=== PATIENT | male | born 1945 | race Hispanic/Latino ===

== ENCOUNTER 2018-01-15 07:41 | Day surgery (SDC) | payer OTHER ==
[2018-01-13 10:40] VITALS: BP 140/75
[2018-01-13 10:56] LABS: BASOPHILS % (AUTO) 0.7 % (0.0-5.0); EOSINOPHILS % (AUTO) 3.7 % (0.0-8.0); HEMATOCRIT 42.7 % (42-54); LYMPHOCYTES % (AUTO) 32.3 % (21.0-51.0); MEAN CORPUSCULAR HEMOGLOBIN 28.9 pg (27.0-33.0); MEAN CORPUSCULAR HGB CONC 33.6 g/dL (32.0-36.0); MEAN CORPUSCULAR VOLUME 86.1 fL (79-99); MONOCYTES % (AUTO) 5.8 % (3.0-13.0); NEUTROPHILS % (AUTO) 57.5 % (40.0-77.0); PLATELET COUNT (AUTO) 128 K/uL (130-400); RED BLOOD CELL COUNT(AUTO) 4.96 MIL/uL (4.50-6.20); RED CELL DISTRIBUTION WIDTH 15.5 % (11.0-15.5); WHITE BLOOD COUNT (AUTO) 4.8 K/uL (4.8-10.8)
[2018-01-13 10:59] LABS: APPEARANCE,URINE CLEAR (CLEAR); BILIRUBIN,URINE NEGATIVE (NEGATIVE); COLOR,URINE YELLOW (YELLOW); GLUCOSE, URINE (UA) >=1000 mg/dL (NEGATIVE); KETONES,URINE NEGATIVE (NEGATIVE); LEUKOCYTE ESTERASE ,URINE NEGATIVE (NEGATIVE); NITRATE,URINE NEGATIVE (NEGATIVE); OCCULT BLOOD,URINE NEGATIVE (NEGATIVE); PROTEIN,URINE NEGATIVE (NEGATIVE); UROBILINOGEN,URINE 0.2 mg/dL (0.2-1.0)
[2018-01-13 11:05] LABS: BACTERIA,URINE Rare /HPF (None Seen); RBC,URINE None Seen /HPF (0-1); SQUAMOUS EPITHELIAL CELL,UR Rare /HPF (0-2); WBC,URINE None Seen /HPF (0-1)
[2018-01-13 11:09] LABS: CREATININE 0.9 mg/dL (0.5-1.5); POTASSIUM 4.9 mmol/L (3.5-5.1)
[2018-01-15] VITALS (19 sets, daily range): BP systolic 96–146; BP diastolic 54–89
[~2018-01-15] VITALS: Ht 171.4 cm; Wt 78.4 kg
[~2018-01-15 07:41] MED LIST: ALPR0.5T8 PO; GLIP5TAB11 PO; LISI30TA4 PO; METF10004 PO; SIMV40TA5 PO
[2018-01-15] MEDS ORDERED: LACTATED RINGERS 1000ML 1,000 ML IV ONE (08:15)
[2018-01-15] MEDS ORDERED: ROPIVACAINE 0.5% 5MG/ML 30ML IJ ONE (09:06)
[2018-01-15] MEDS ORDERED: LIDOCAINE HCL 2% 20ML ONE (09:06)
[2018-01-15] MEDS ORDERED: ROCURONIUM BROMIDE 10MG/1ML 5ML VL ONE (09:24)
[2018-01-15] MEDS ORDERED: FENTANYL CITRATE PF 50 MCG/1 ML 2ML VIAL ONE (09:25)
[2018-01-15] MEDS ORDERED: PROPOFOL 10 MG/ML 20ML VIAL IV ONE (09:25)
[2018-01-15] MEDS ORDERED: MIDAZOLAM HCL 1 MG/ML 2ML VIAL ONE (09:25)
[2018-01-15] MEDS ORDERED: CALDOLOR 800MG+NS 250ML 250 ML IV ONE (10:18)
[2018-01-15] MEDS ORDERED: ESMOLOL HCL 10 MG/ML 10 ML VIAL ONE (10:31)
[2018-01-15] MEDS ORDERED: NEOSTIGMINE METHYLSULFATE 1MG/ML IV ONE (10:31)
[2018-01-15] MEDS ORDERED: MEPERIDINE-PF 25 MG/ML SYG ONE (11:29)
[2018-01-15] MEDS ORDERED: IPRATROPIUM/ALBUTEROL SULFATE 3 ML SOLUTION IH ONE (12:11)
[2018-01-15] MEDS ORDERED: TYL3 PO (13:15)
== END 2018-01-15 13:55 | disposition home or self-care (01) ==
LOC: DAH 07:41
PROVIDERS: ATTEND Surgery
DX: K40.90 Unilateral inguinal hernia, without obstruction or gangrene, not specified as recurrent (principal); E11.9 Type 2 diabetes mellitus without complications; E78.5 Hyperlipidemia, unspecified; I10 Essential (primary) hypertension; E66.3 Overweight; Z79.84 Long term (current) use of oral hypoglycemic drugs; Z83.3 Family history of diabetes mellitus
CPT/HCPCS: 36415; 49505; 80048; 81001; 82948 ×2; 85025; 93005; 94640; A4450; A4452; A4930; C1729; C1781; J1741; J2175; J2250; J2704; J2710; J2795; J3010; J3490 ×3; J7030; J7120